=== PATIENT | female | born 1970 | race African-American/Black ===

== ENCOUNTER → 2017-05-19 | Outpatient (CLI) | payer OTHER ==
[~2017-05-19] MED LIST: ACYC-1 PO; ASPI81TA82 PO; CHOL1TAB16 PO; DOCU1CAP39 PO; HYDR-2768 PO; LIPI10TA PO; LISI-363 PO; LORA-392 PO; NAPR250T57 PO; NEVI200 PO; PERC5TAB12 PO; PRED5TAB; ROBA750T3 PO; SOMA350T PO; VESI5TAB PO; [UNRECOGNIZED DRUG - OTHER]
--- NOTE | 2017-05-19 16:22 | EKG ---
Date Performed: 05/19/2017 Time Performed: 15:05:22 PTAGE: 46 years EKG: Sinus rhythm NORMAL ECG NO SIGNIFICANT CHANGE FROM PRIOR ELECTROCARDIOGRAM. PREVIOUS TRACING : 06/16/2016 08.09 DOCTOR: Neymar Tinajero Interpretating Date/Time 05/19/2017 16:20:57
== END ==
LOC: HCAV 14:55
PROVIDERS: ATTEND Specialist
DX: R06.02 Shortness of breath (principal)
CPT/HCPCS: 93005